=== PATIENT | female | born 1980 | race Caucasian/White ===

== ENCOUNTER 2017-12-29 20:34 | Emergency (ER) | payer OTHER ==
[~2017-12-29 20:34] MED LIST: ACE325 PO; ALBMDV INH; ALBU8.5H IH; CET10 PO; ETON1VAG7 VG; IBU200 PO; INT1APT SQ; LEVO1TBD11 PO; LOR5/325 PO; MULT-912 PO; MULT1TAB54 PO; REBIF44PT SQ
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
[2017-12-29 20:40] VITALS: BP 140/112
[2017-12-29] MEDS ORDERED: traMADol 50 MG TAB PO ONE (20:45)
[2017-12-29] MEDS ORDERED: SILVER sulfADI 1% CR 20GM TB TP ONE (20:45)
[2017-12-29] MEDS ORDERED: IBUPROFEN 600 MG TAB PO ONE (20:45)
[2017-12-29] MEDS ORDERED: ACETAMINOPHEN 325 MG TAB PO ONE (20:45)
[2017-12-29] MEDS ORDERED: SILV20CR2 TP (20:52)
[2017-12-29] MEDS ORDERED: HYDROmorphone 2 MG TAB TH 2 TAB/BOTTLE PO ONE (21:25)
== END 2017-12-29 21:58 | disposition home or self-care (01) ==
LOC: ER 21:07
DX: T22.231A Burn of second degree of right upper arm, initial encounter (principal); T21.21XA Burn of second degree of chest wall, initial encounter
CPT/HCPCS: 16030; 99283; A9270

== ENCOUNTER → 2018-01-02 | Outpatient (REF) | payer OTHER ==
[~2018-01-02] MED LIST changes: +SILV20CR2 TP
[2018-01-02 14:08] LABS: PLATELET COUNT, AUTOMATED 127 K/uL (150-450)
== END ==
LOC: ZZSTITCHES 14:02
PROVIDERS: ATTEND Physician Assistant
DX: R50.9 Fever, unspecified (principal)
CPT/HCPCS: 85025

== ENCOUNTER → 2018-01-04 | Outpatient (REF) | payer OTHER | LOC: ZZSTITCHES 17:02 | PROVIDERS: ATTEND Physician Assistant | DX: E86.0 Dehydration (principal) | CPT/HCPCS: 82040; 82247; 82310; 82374; 82435; 82565; 82947; 84075; 84132; 84155; 84295; 84450; 84460; 84520 ==

== ENCOUNTER → 2018-01-05 | Outpatient (REF) | payer OTHER | LOC: ZZSTITCHES 18:57 | PROVIDERS: ATTEND Physician Assistant | DX: E86.0 Dehydration (principal) | CPT/HCPCS: 82310; 82374; 82435; 82565; 82947; 84132; 84295; 84520 ==

== ENCOUNTER → 2018-01-18 | Outpatient (CLI) | payer OTHER ==
[~2018-01-18] MED LIST changes: +GADOBENATE 529MG/1ML 15ML VIAL IVP ONE
--- NOTE | 2018-01-18 10:45 | RADIOLOGY IMAGING REPORT ---
FACILITY: [facility] PATIENT NAME: Alida Don : 1980 MR: [id number] V: [id number] EXAM DATE: ORDERING PHYSICIAN: YAMILEX FELIX TECHNOLOGIST: Location: [facility] [place] Patient: Alida Don : 1980 Visit/Account:[id number] Date of Sevice: 01/18/2018 Examination: MR brain without and with contrast History: MS Comparison: July 27, 2013 Technique: Multiplane MR imaging was performed through the brain without and with contrast. 15 cc IV multihance was administered. Findings: Diffusion: None Ventricles: Normal Midline shift: None Extraxial fluid: None Midline craniocervical structures: Normal Parenchyma: Greater than 20 unchanged white matter high signal foci. Enhancement: No pathologic enhancement Vascular flow voids: Normal Orbits and paranasal sinuses: Potential polyp in the left nasal cavity measuring 9 mm has decreased i n size, axial T2 image 10. Other: No significant additional finding. Impression: 1. Greater than 20 unchanged white matter high signal foci in keeping with residua of demyelination. No new parenchymal signal abnormality. 2. No pathologic enhancement. 3. Potential left nasal cavity 9 mm polyp has decreased in size. Report Dictated By: Moise Asif MD at 01/18/2018 10:32 AM Report E-Signed By: Moise Asif MD at 01/18/2018 10:41 AM WSN:[id number]
== END ==
LOC: MRI 12-31 01:06
PROVIDERS: ATTEND Psychiatry & Neurology Neurology
DX: G35 Multiple sclerosis (principal); J33.9 Nasal polyp, unspecified
CPT/HCPCS: 70553; A9577

== ENCOUNTER → 2018-02-01 | Outpatient (REF) | payer OTHER ==
[~2018-02-01] MED LIST changes: -GADOBENATE 529MG/1ML 15ML VIAL IVP ONE
== END ==
LOC: ZZSTITCHES 10:10
PROVIDERS: ATTEND Physician Assistant
DX: T22.232D Burn of second degree of left upper arm, subsequent encounter (principal); B95.61 Methicillin susceptible Staphylococcus aureus infection as the cause of diseases classified elsewhere
CPT/HCPCS: 87070; 87077; 87186

== ENCOUNTER → 2018-03-15 | Outpatient (REF) | payer OTHER | LOC: ZZSTITCHES 11:49 | PROVIDERS: ATTEND Physician Assistant | DX: T22.239 Burn of second degree of unspecified upper arm (principal) | CPT/HCPCS: 87070 ==